=== PATIENT | female | born 1985 | race Caucasian/White ===

== ENCOUNTER 2016-10-03 11:40 | Outpatient (CLI) ==
[2016-10-03 13:06] LABS: FLU INTERNAL QC INTERNAL QC VALID; RAPID FLU A NEGATIVE (NEGATIVE); RAPID FLU B NEGATIVE (NEGATIVE)
[2016-10-03 15:48] VITALS: BMI 31.8
== END 2016-10-03 11:41 | disposition home or self-care (01) ==
LOC: LAB 11:40
PROVIDERS: ATTEND Nurse Practitioner Family
DX: R50.9 Fever, unspecified (principal); R52 Pain, unspecified
CPT/HCPCS: 87804

== ENCOUNTER 2016-10-03 15:39 | Emergency (ER) ==
[2016-10-03 15:48] VITALS: BP 154/97; TEMP 100.1; BMI 31.8
--- NOTE | 2016-10-03 16:00 | ED.PDOC ---
General ED Provider: Dr. MAYA GOEL Chief Complaint: Abscess Stated Complaint: abscess righ tigh Time Seen by Physician: 14:50 (ash present see photosx2) Mode of Arrival: Walk-In Information Source: Patient Exam Limitations: No limitations Primary Care Provider: LUCERO DING Nursing and Triage Documentation Reviewed and Agree: Yes Skin Complaint Exam - Skin/Soft Tissue Complaint/Exam Onset/Duration: 3 days Symptoms Are: Still present Timing: Constant Initial Severity: Mild Current Severity: Mild Character: Reports: Redness, Swelling Aggravating: Reports: None Alleviating: Reports: None Associated Signs and Symptoms: Denies: Fever, Chills, Itching, Drainage, Bruising, Tenderness, Red streaks, Joint swelling Related Surgical History: Reports: None Recent Exposure to Others w/Similar Symptoms: No Differential Diagnoses: Abscess Review of Systems - Review Of Systems Constitutional: Reports: No symptoms Eyes: Reports: No symptoms Ears, Nose, Mouth, Throat: Reports: No symptoms Respiratory: Reports: No symptoms Cardiac: Reports: No symptoms GI: Reports: No symptoms : Reports: No symptoms Musculoskeletal: Reports: No symptoms Skin: Reports: Rash (abscess right tigh ) Neurological: Reports: No symptoms Endocrine: Reports: No symptoms Hematologic/Lymphatic: Reports: No symptoms All Other Systems: Reviewed and Negative Past Medical History - Past Medical History Previously Healthy: Yes Endocrine: Reports: None Cardiovascular: Reports: None Respiratory: Reports: None Hematological: Reports: None Gastrointestinal: Reports: None Genitourinary: Reports: None Neuro/Psych: Reports: None Musculoskeletal: Reports: None Cancer: Reports: None Last Menstrual Period: merana so does not have periods. - Surgical History General Surgical History: Reports: None - Family History Family History: Reports: None - Social History Smoking Status: Never smoker Hx Substance Use: No Alcohol Screening: Occasionally Physical Exam - Physical Exam Appearance: Well-appearing, No pain distress, Well-nourished Eyes: LARRY, EOMI, Conjunctiva clear ENT: Ears normal, Nose normal, Oropharynx normal Respiratory: Airway patent, Breath sounds clear, Breath sounds equal, Respirations nonlabored Cardiovascular: RRR, Pulses normal, No rub, No murmur GI/: Soft, Nontender, No masses, Bowel sounds normal, No Organomegaly Musculoskeletal: Normal strength, ROM intact, No edema, No calf tenderness Skin: Warm, Dry (2 cm abscess draining small amount) Neurological: Sensation intact, Motor intact, Reflexes intact, Cranial nerves intact, Alert, Oriented Psychiatric: Affect appropriate, Mood appropriate Critical Care Note - Critical Care Note Total Time (mins): 0 Course - Course Vital Signs: Temp Pulse Resp BP Pulse Ox 10/03/16 15:41 100.1 F H 120 H 16 154/97 H 97 Departure - Departure Time of Disposition: 16:00 (see photos, abscess was squeezed small amount of puss recovered ) Disposition: HOME SELF-CARE Discharge Problem: Abscess Instructions: Abscess (ED) Condition: Good Pt referred to PMD for follow-up: Yes Additional Instructions: Please call your Family Physician as soon as possible to schedule a follow-up appointment. Allergies/Adverse Reactions: Allergies clindamycin Allergy (Intermediate, Unverified 10/03/16 15:48) Rash Home Medications: Ambulatory Orders Phenylephrine HCl/Acetaminophn [Sudafed Pe Pressure+Pain Cplt] 1 each PO DIRECTED PRN 07/27/16 Disposition Discussed With: Patient
== END 2016-10-03 16:08 | disposition home or self-care (01) ==
LOC: ED 15:39
DX: L02.415 Cutaneous abscess of right lower limb (principal); R50.9 Fever, unspecified; R52 Pain, unspecified
CPT/HCPCS: 87070; 87804; 99282